=== PATIENT | female | born 2000 | race Caucasian/White ===

== ENCOUNTER 2021-02-16 11:35 | Observation (INO) | payer OTHER ==
[2021-02-16] MEDS ORDERED: TORAdol 30 mg Injection ONE (11:44)
[2021-02-16] MEDS ORDERED: Zofran 4 MG/2 ML VIAL ONE ×2 (11:44→15:28)
[2021-02-16] MEDS ORDERED: Sodium Chloride 0.9% 1000 ML 1,000 ML ONE (11:44)
[2021-02-16] MEDS ORDERED: TORAdol 30 mg Injection IV ONE (11:51)
[2021-02-16] MEDS ORDERED: Sodium Chloride 0.9% 1000 ML 1,000 ML IV STA (11:51)
[2021-02-16] MEDS ORDERED: Zofran 4 MG/2 ML VIAL IV ONE ×2 (11:59→15:23)
[2021-02-16 12:02] LABS: Absolute Neutrophil Ct (ANC) 4.67 (1.4-6.9); BASOPHIL % 0.5 % (0.0-0.4); Basophil (Absolute #) 0.05 (0-0.4); Eosinophil % 1.3 % (0.00-5.0); Eosinophil (Absolute #) 0.14 (0-0.5); Hematocrit 39.8 % (35-47); Hemoglobin 12.9 gm/dl (12.0-16.0); Lymphocyte (Absolute #) 5.45 (1.0-4.6); Lymphocytes % 49.8 % (24.0-44.0); Mean Cell Volume 94.8 fl (78-100); Mean Corpuscular Hemoglobin 30.7 pg (26-32); Mean Corpuscular Hgb Concent. 32.4 g/dl (32-36); Mean Platelet Volume 10.9 fl (7.5-11.0); Monocyte (Absolute #) 0.64 (0.0-1.3); Monocytes % 5.8 % (0.0-12.0); Neutrophil % 42.6 % (36.0-66.0); Platelet Count 272 K/mm3 (150-450); Red Cell Distribution Width 12.9 % (11.5-14.0)
[2021-02-16] MEDS ORDERED: MORPHINE SULFATE 4 MG INJ IV ONE (12:21)
[2021-02-16] MEDS ORDERED: BENADRYL 50 MG/ML IV ONE (12:26)
[2021-02-16] MEDS ORDERED: BENADRYL 50 MG/ML ONE (12:27)
[2021-02-16] MEDS ORDERED: MORPHINE SULFATE 4 MG INJ ONE (12:27)
[2021-02-16 12:33] LABS: ALBUMIN 4.6 g/dL (3.5-5.0); ALKALINE PHOSPHATASE 45 U/L (38-126); ANION GAP 17.1 MEQ/L (5-15); BLOOD UREA NITROGEN 10 mg/dL (7-17); CHLORIDE 107 mmol/L (98-107); Calcium 9.8 mg/dL (8.4-10.2); Carbon Dioxide 20 mmol/L (22-30); Creatinine 1 0.81 mg/dL (0.52-1.04); EST GLOMERULAR FILTRATION RATE > 60.0 ML/MIN; Glucose 116 mg/dL (74-106); Potassium 3.8 mmol/L (3.5-5.1); SGOT/AST 19 U/L (14-36); SGPT/ALT 10 U/L (0-35); SODIUM 141 mmol/L (137-145); Total Protein 7.7 g/dL (6.3-8.2)
[2021-02-16 12:53] LABS: Slide Review 1 YES
--- NOTE | 2021-02-16 13:14 | XRAY ---
Indication: Abdomen pain and vomiting. Kidney stone. Multiple contiguous images obtained through the abdomen and pelvis without contrast using renal stone protocol. Comparison: May 24, 2015. Lung bases remain clear. Heart is not enlarged. No renal calculus or evidence for obstructive uropathy in either system. Noncontrasted stomach and bowel loops appear nonobstructed. Normal air-filled appendix. Tiny cul-de-sac fluid presumed physiologic from rupture/leaking cyst. Remaining liver, gallbladder, pancreas, spleen, adrenal glands, kidneys, ureters, bladder, uterus, and aorta are unremarkable for noncontrast exam. Osseous structures intact. Impression: 1. Continued negative for renal calculus or evidence for obstructive uropathy. 2. New tiny physiologic cul-de-sac fluid. 3. Remaining CT abdomen/pelvis without contrast exam is negative.
[2021-02-16 14:33] LABS: Clue Cells None Seen
[2021-02-16 14:34] LABS: Bacteria Rare; Red Blood Cells Moderate; Trichomonas None Seen; White Blood Cells Few; Yeast Rare
[2021-02-16 14:35] LABS: Appearance SLIGHTLY CLOUDY (CLEAR); Bacteria RARE /HPF (NEGATIVE); Bilirubin NEGATIVE (NEGATIVE); Blood LARGE Ery/ul (0-5); Epithelial Cells RARE /HPF (FEW); Glucose NEGATIVE (NEGATIVE); Ketones SMALL (NEGATIVE); Leukocyte Esterase NEGATIVE (NEGATIVE); Mucus SLIGHT /HPF (NEGATIVE); Nitrite NEGATIVE (NEGATIVE); Protein,Urine Dip 30 (Negative); RBC 26-50 /HPF (0-2); Urobilinogen NEGATIVE mg/dL (0-1)
--- NOTE | 2021-02-16 15:18 | XRAY ---
Indication: Pain and vomiting. Torsion. Two-dimensional transabdominal and transvaginal pelvic sonogram performed. Comparison: None Uterus retroflexed measuring 5.7 x 2.8 x 3.6 cm. No focal solid/cystic uterine mass. Endometrial stripe measures 1.9 mm. No endometrial cavity mass or fluid collection. Right ovary measures 2.0 x 1.9 x 1.7 cm and the left measures 2.4 x 2.3 x 2.1 cm. Normal perfusion bilaterally. Tiny cul-de-sac fluid presumed physiologic from rupture/leaking cyst. Impression: Retroflexed uterus. Tiny cul-de-sac physiologic free fluid. Remaining pelvic sonogram is negative.
--- NOTE | 2021-02-16 15:21 | ERPHSYRPT ---
- History of Present Illness Time Seen by Provider: 02/16/21 11:45 Patient Subjective Stated Complaint: Abdominal pain Triage Nursing Assessment: Patient brought back to ED via w/c and transferred to bed with assist of 1. Patient A+O x3. Patient's skin flushed, cool and dry. Patient complains of abdominal pain that goes to yunior flank 10/10 constant sharp pain. Patient crying in pain. Abdomen soft and round with BS X 4. Patient states the pain started after she urinated prior to coming into ED. Patient complains of N/V. Physician History: Patient is a 20-year-old female presents to our emergency department with complaints of abdominal pain that radiates into her vagina. Pain started just prior to arrival. 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 Pain is constant and severe. Patient states she typically has pain associated with her menstrual periods she is currently on her menstrual period. Pain associated with nausea and vomiting. No trauma no fever. Symptoms are moderate in intensity. No specific worsening or improving factors. Patient voices no other complaints concerns at this time. Timing/Duration: today Severity: moderate Modifying Factors: Improves With: nothing Associated Symptoms: nausea, vomiting, abdominal pain, No shortness of breath, No heartburn, No diaphoresis, No cough, No chills, No chest pain, No fever, No headaches, No loss of appetite, No malaise, No rash Allergies/Adverse Reactions: No Known Drug Allergies Allergy (Verified 02/16/21 11:36) Hx Tetanus, Diphtheria Vaccination/Date Given: Yes Hx Influenza Vaccination/Date Given: Yes Hx Pneumococcal Vaccination/Date Given: No Immunizations Up to Date: Yes Travel Risk - International Travel Have you traveled outside of the country in past 3 weeks: No - Coronavirus Screening Are you exhibiting any of the following symptoms?: No Close contact with a COVID-19 positive Pt in past 14-21 Days: No - Vaccine Status Have you recieved a Covid-19 vaccination: No - Review of Systems Constitutional: No Symptoms, No Fever, No Chills Eyes: No Symptoms Ears, Nose, & Throat: No Symptoms Respiratory: No Symptoms, No Cough, No Dyspnea Cardiac: No Symptoms, No Chest Pain, No Edema, No Syncope Abdominal/Gastrointestinal: No Symptoms, No Abdominal Pain, No Nausea, No Vomiting, No Diarrhea Genitourinary Symptoms: No Symptoms, No Dysuria Musculoskeletal: No Symptoms, No Back Pain, No Neck Pain Skin: No Symptoms, No Rash Neurological: No Symptoms, No Dizziness, No Focal Weakness, No Sensory Changes Psychological: No Symptoms Endocrine: No Symptoms Hematologic/Lymphatic: No Symptoms Immunological/Allergic: No Symptoms All Other Systems: Reviewed and Negative - Past Medical History Pertinent Past Medical History: No Neurological History: Migraines ENT History: No Pertinent History, Other Cardiac History: No Pertinent History Respiratory History: No Pertinent History Endocrine Medical History: No Pertinent History Musculoskeletal History: No Pertinent History GI Medical History: No Pertinent History, GERD Psycho-Social History: No Pertinent History - Past Surgical History Past Surgical History: Yes Other Surgical History: CYST REMOVED - Social History Smoking Status: Never smoker Exposure to second hand smoke: Yes Drug Use: none Patient Lives Alone: No - Female History Hx Last Menstrual Period: currently Hx Now: No - Nursing Vital Signs Nursing Vital Signs: Initial Vital Signs Temperature 98.0 F 02/16/21 11:38 Pulse Rate 72 02/16/21 11:38 Respiratory Rate 18 02/16/21 11:38 Blood Pressure 123/77 02/16/21 11:38 O2 Sat by Pulse Oximetry 100 02/16/21 11:38 Pain Scale Pain Intensity 4 - Physical Exam General Appearance: no apparent distress, alert Eye Exam: PERRL/EOMI, eyes nml inspection Ears, Nose, Throat Exam: normal ENT inspection, TMs normal, pharynx normal, moist mucous membranes Neck Exam: normal inspection, non-tender, supple, full range of motion Respiratory Exam: normal breath sounds, lungs clear, No respiratory distress Cardiovascular Exam: regular rate/rhythm, normal heart sounds, normal peripheral pulses Gastrointestinal/Abdomen Exam: soft, normal bowel sounds, No tenderness, No mass Pelvic Exam: normal external exam, adnexal tenderness (Mild bilateral adnexal tenderness.), No cervical motion tenderness (Negative chandelier sign. There is vaginal bleeding however patient currently on her menstrual period) Back Exam: normal inspection, normal range of motion, No CVA tenderness, No vertebral tenderness Extremity Exam: normal inspection, normal range of motion, pelvis stable Neurologic Exam: alert, oriented x 3, cooperative, normal mood/affect, nml cerebellar function, nml station & gait, sensation nml, No motor deficits Skin Exam: normal color, warm, dry, No rash Lymphatic Exam: No adenopathy SpO2 Interpretation: normal SpO2: 98 O2 Delivery: Room Air - Course Nursing assessment & vital signs reviewed: Yes - CT Exams Abdomen/Pelvis CT Interpretation: Tele-radiologist Report (No ureterolithiasis. No acute intra-abdominal pathology observed. Small fluid in the cul-de-sac.) - Radiology Ultrasound Exam Pelvis Ultrasound: tele radiology report (Retroflexed uterus. Tiny cul-de-sac physiologic free fluid. Remaining pelvic sonogram is negative. Normal ovary perfusion bilaterally.) Ordered Tests: Active Orders 24 hr Category Date Time Status IV Insertion STAT Care 02/16/21 11:51 Active ABDOMEN AND PELVIS W/0 CONTRAS [CT] Stat Exams 02/16/21 11:52 Completed PELVIS TRANS VAGINAL [US] Stat Exams 02/16/21 14:17 Completed CBC W DIFF Stat Lab 02/16/21 12:01 Completed CMP Stat Lab 02/16/21 12:01 Completed CULTURE,URINE Stat Lab 02/16/21 14:17 Received HCG QUALITATIVE,SERUM Stat Lab 02/16/21 Completed UA W/RFX UR CULTURE Stat Lab 02/16/21 14:17 Completed Wet Prep Stat Lab 02/16/21 14:10 Completed Medication Summary Discontinued Medications Generic Name Dose Route Start Last Admin Trade Name Freq PRN Reason Stop Dose Admin Diphenhydramine HCl 25 mg 02/16/21 12:26 02/16/21 12:28 Benadryl 50 Mg/Ml IV 02/16/21 12:27 25 mg STAT ONE Administration Diphenhydramine HCl Confirm 02/16/21 12:27 Benadryl 50 Mg/Ml Administered 02/16/21 12:28 Dose 50 mg .ROUTE .STK-MED ONE Sodium Chloride Confirm 02/16/21 11:44 Sodium Chloride 0.9% 1000 Ml Administered 02/16/21 11:45 Dose 1,000 mls @ ud .ROUTE .STK-MED ONE Sodium Chloride 1,000 mls @ 999 mls/hr 02/16/21 11:51 02/16/21 13:03 Sodium Chloride 0.9% 1000 Ml IV 02/16/21 12:51 Infused .Q1H1M STA Infusion Ketorolac Tromethamine Confirm 02/16/21 11:44 Toradol 30 Mg Injection Administered 02/16/21 11:45 Dose 30 mg .ROUTE .STK-MED ONE Ketorolac Tromethamine 30 mg 02/16/21 11:51 02/16/21 11:56 Toradol 30 Mg Injection IV 02/16/21 11:52 30 mg STAT ONE Administration Morphine Sulfate 4 mg 02/16/21 12:21 02/16/21 12:28 Morphine Sulfate 4 Mg Inj IV 02/16/21 12:22 4 mg STAT ONE Administration Morphine Sulfate Confirm 02/16/21 12:27 Morphine Sulfate 4 Mg Inj Administered 02/16/21 12:28 Dose 4 mg .ROUTE .STK-MED ONE Ondansetron HCl Confirm 02/16/21 11:44 Zofran 4 Mg/2 Ml Vial Administered 02/16/21 11:45 Dose 4 mg .ROUTE .STK-MED ONE Ondansetron HCl 4 mg 02/16/21 11:59 02/16/21 12:00 Zofran 4 Mg/2 Ml Vial IV 02/16/21 12:00 4 mg STAT ONE Administration Ondansetron HCl 4 mg 02/16/21 15:23 02/16/21 15:29 Zofran 4 Mg/2 Ml Vial IV 02/16/21 15:24 4 mg STAT ONE Administration Ondansetron HCl Confirm 02/16/21 15:28 Zofran 4 Mg/2 Ml Vial Administered 02/16/21 15:29 Dose 4 mg .ROUTE .STK-MED ONE Lab/Rad Data: Laboratory Result Diagrams 02/16/21 12:01 02/16/21 12:01 Laboratory Results 02/16/21 02/16/21 02/16/21 Range/Units Unknown 15:36 14:17 WBC (4.0-10.5) K/mm3 RBC (4.1-5.4) M/mm3 Hgb (12.0-16.0) gm/dl Hct (35-47) % MCV (78-100) fl MCH (26-32) pg MCHC (32-36) g/dl RDW (11.5-14.0) % Plt Count (150-450) K/mm3 MPV (7.5-11.0) fl Gran % (36.0-66.0) % Eos # (Auto) (0-0.5) Absolute Lymphs (auto) (1.0-4.6) Absolute Monos (auto) (0.0-1.3) Lymphocytes % (24.0-44.0) % Monocytes % (0.0-12.0) % Eosinophils % (0.00-5.0) % Basophils % (0.0-0.4) % Absolute Granulocytes (1.4-6.9) Basophils # (0-0.4) Sodium (137-145) mmol/L Potassium (3.5-5.1) mmol/L Chloride (98-107) mmol/L Carbon Dioxide (22-30) mmol/L Anion Gap (5-15) MEQ/L BUN (7-17) mg/dL Creatinine (0.52-1.04) mg/dL Estimated GFR ML/MIN Glucose (74-106) mg/dL Calcium (8.4-10.2) mg/dL Total Bilirubin (0.2-1.3) mg/dL AST (14-36) U/L ALT (0-35) U/L Alkaline Phosphatase (38-126) U/L Serum Total Protein (6.3-8.2) g/dL Albumin (3.5-5.0) g/dL Serum , Qual NEGATIVE (Negative) Urine Color (YELLOW) Urine Appearance (CLEAR) Urine pH (5-6) Ur Specific [place] (1.005-1.025) Urine Protein (Negative) Urine Ketones (NEGATIVE) Urine Blood (0-5) Ramu/ul Urine Nitrite (NEGATIVE) Urine Bilirubin (NEGATIVE) Urine Urobilinogen (0-1) mg/dL Ur Leukocyte Esterase (NEGATIVE) Urine WBC (Auto) (0-5) /HPF Urine RBC (Auto) (0-2) /HPF U Epithel Cells (Auto) (FEW) /HPF Urine Bacteria (Auto) (NEGATIVE) /HPF Urine Mucus (Auto) (NEGATIVE) /HPF Urine Culture Reflexed (NO) Urine Glucose (NEGATIVE) mg/dL WBC (Wet Prep) RBC (Wet Prep) Epi Cells (Wet Prep) Bacteria (Wet Prep) Clue Cells (Wet Prep) Trichomonas (Wet Prep) Budding Yeast (Wet Prp) Chlamydia DNA Probe NOT DETECTED (NEGATIVE) Influenza Type A Ag NEGATIVE (NEGATIVE) Influenza Type B Ag NEGATIVE (NEGATIVE) N.gonorrhoeae DNA Probe NOT DETECTED (NEGATIVE) RSV (PCR) NEGATIVE (Negative) SARS-CoV-2 (PCR) NEGATIVE (NEGATIVE) Slides for Path Review 02/16/21 02/16/21 02/16/21 Range/Units 14:17 14:10 12:01 WBC (4.0-10.5) K/mm3 RBC (4.1-5.4) M/mm3 Hgb (12.0-16.0) gm/dl Hct (35-47) % MCV (78-100) fl MCH (26-32) pg MCHC (32-36) g/dl RDW (11.5-14.0) % Plt Count (150-450) K/mm3 MPV (7.5-11.0) fl Gran % (36.0-66.0) % Eos # (Auto) (0-0.5) Absolute Lymphs (auto) (1.0-4.6) Absolute Monos (auto) (0.0-1.3) Lymphocytes % (24.0-44.0) % Monocytes % (0.0-12.0) % Eosinophils % (0.00-5.0) % Basophils % (0.0-0.4) % Absolute Granulocytes (1.4-6.9) Basophils # (0-0.4) Sodium 141 (137-145) mmol/L Potassium 3.8 (3.5-5.1) mmol/L Chloride 107 (98-107) mmol/L Carbon Dioxide 20 L (22-30) mmol/L Anion Gap 17.1 H (5-15) MEQ/L BUN 10 (7-17) mg/dL Creatinine 0.81 (0.52-1.04) mg/dL Estimated GFR > 60.0 ML/MIN Glucose 116 H (74-106) mg/dL Calcium 9.8 (8.4-10.2) mg/dL Total Bilirubin 0.70 (0.2-1.3) mg/dL AST 19 (14-36) U/L ALT 10 (0-35) U/L Alkaline Phosphatase 45 (38-126) U/L Serum Total Protein 7.7 (6.3-8.2) g/dL Albumin 4.6 (3.5-5.0) g/dL Serum , Qual (Negative) Urine Color YELLOW (YELLOW) Urine Appearance SLIGHTLY CLOUDY (CLEAR) Urine pH 7.0 (5-6) Ur Specific [place] 1.020 (1.005-1.025) Urine Protein 30 (Negative) Urine Ketones SMALL (NEGATIVE) Urine Blood LARGE (0-5) Ramu/ul Urine Nitrite NEGATIVE (NEGATIVE) Urine Bilirubin NEGATIVE (NEGATIVE) Urine Urobilinogen NEGATIVE (0-1) mg/dL Ur Leukocyte Esterase NEGATIVE (NEGATIVE) Urine WBC (Auto) 6-10 (0-5) /HPF Urine RBC (Auto) 26-50 (0-2) /HPF U Epithel Cells (Auto) RARE (FEW) /HPF Urine Bacteria (Auto) RARE (NEGATIVE) /HPF Urine Mucus (Auto) SLIGHT (NEGATIVE) /HPF Urine Culture Reflexed YES (NO) Urine Glucose NEGATIVE (NEGATIVE) mg/dL WBC (Wet Prep) Few RBC (Wet Prep) Moderate Epi Cells (Wet Prep) Few Bacteria (Wet Prep) Rare Clue Cells (Wet Prep) None Seen Trichomonas (Wet Prep) None Seen Budding Yeast (Wet Prp) Rare Chlamydia DNA Probe (NEGATIVE) Influenza Type A Ag (NEGATIVE) Influenza Type B Ag (NEGATIVE) N.gonorrhoeae DNA Probe (NEGATIVE) RSV (PCR) (Negative) SARS-CoV-2 (PCR) (NEGATIVE) Slides for Path Review 02/16/21 Range/Units 12:01 WBC 11.0 H (4.0-10.5) K/mm3 RBC 4.20 (4.1-5.4) M/mm3 Hgb 12.9 (12.0-16.0) gm/dl Hct 39.8 (35-47) % MCV 94.8 (78-100) fl MCH 30.7 (26-32) pg MCHC 32.4 (32-36) g/dl RDW 12.9 (11.5-14.0) % Plt Count 272 (150-450) K/mm3 MPV 10.9 (7.5-11.0) fl Gran % 42.6 (36.0-66.0) % Eos # (Auto) 0.14 (0-0.5) Absolute Lymphs (auto) 5.45 H (1.0-4.6) Absolute Monos (auto) 0.64 (0.0-1.3) Lymphocytes % 49.8 H (24.0-44.0) % Monocytes % 5.8 (0.0-12.0) % Eosinophils % 1.3 (0.00-5.0) % Basophils % 0.5 (0.0-0.4) % Absolute Granulocytes 4.67 (1.4-6.9) Basophils # 0.05 (0-0.4) Sodium (137-145) mmol/L Potassium (3.5-5.1) mmol/L Chloride (98-107) mmol/L Carbon Dioxide (22-30) mmol/L Anion Gap (5-15) MEQ/L BUN (7-17) mg/dL Creatinine (0.52-1.04) mg/dL Estimated GFR ML/MIN Glucose (74-106) mg/dL Calcium (8.4-10.2) mg/dL Total Bilirubin (0.2-1.3) mg/dL AST (14-36) U/L ALT (0-35) U/L Alkaline Phosphatase (38-126) U/L Serum Total Protein (6.3-8.2) g/dL Albumin (3.5-5.0) g/dL Serum , Qual (Negative) Urine Color (YELLOW) Urine Appearance (CLEAR) Urine pH (5-6) Ur Specific [place] (1.005-1.025) Urine Protein (Negative) Urine Ketones (NEGATIVE) Urine Blood (0-5) Ramu/ul Urine Nitrite (NEGATIVE) Urine Bilirubin (NEGATIVE) Urine Urobilinogen (0-1) mg/dL Ur Leukocyte Esterase (NEGATIVE) Urine WBC (Auto) (0-5) /HPF Urine RBC (Auto) (0-2) /HPF U Epithel Cells (Auto) (FEW) /HPF Urine Bacteria (Auto) (NEGATIVE) /HPF Urine Mucus (Auto) (NEGATIVE) /HPF Urine Culture Reflexed (NO) Urine Glucose (NEGATIVE) mg/dL WBC (Wet Prep) RBC (Wet Prep) Epi Cells (Wet Prep) Bacteria (Wet Prep) Clue Cells (Wet Prep) Trichomonas (Wet Prep) Budding Yeast (Wet Prp) Chlamydia DNA Probe (NEGATIVE) Influenza Type A Ag (NEGATIVE) Influenza Type B Ag (NEGATIVE) N.gonorrhoeae DNA Probe (NEGATIVE) RSV (PCR) (Negative) SARS-CoV-2 (PCR) (NEGATIVE) Slides for Path Review YES - Progress Progress: improved Progress Note: Patient reassessed. Pain transiently improved. CT scan negative for acute pathology. There is small amount of fluid in the cul-de-sac. Pelvic exam essentially negative. GC chlamydia/wet prep essentially negative. Ultrasound pelvis shows fluid in the cul-de-sac. Otherwise negative. Labs essentially within normal limits. However patient remains symptomatic. Patient continues to complain of nausea and vomiting. Patient unable to tolerate p.o. Patient is very nauseous. Patient's pain continues to be problematic. Endometriosis is on our differential. Case discussed with Dr. Rolon accepts admission to observation. Dr. Duke on consult. Dr. Chávez evaluated patient at bedside. Plan of care discussed with patient. Mother at bedside. They both agree to admission at [facility] for further evaluation and treatment. 02/16/21 17:14 Discussed with DrPilar: Humble Stevenson Will see patient in: hospital (observation) Counseled pt/family regarding: lab results, diagnosis, rad results - Departure Departure Disposition: Observation Clinical Impression: Nausea & vomiting, Intractable abdominal pain Condition: Stable Critical Care Time: No Referrals: CR JACKSON, [employer]YS[employer]AC[employer] MEMBER [Primary Care Provider] -
[2021-02-16 15:50] LABS: CHLAMYDIA DNA NOT DETECTED (NEGATIVE); GC DNA Probe NOT DETECTED (NEGATIVE)
[2021-02-16 16:25] LABS: INFLUENZA A NEGATIVE (NEGATIVE); INFLUENZA B NEGATIVE (NEGATIVE); RESPIRATORY SYNCTIAL VIRUS NEGATIVE (Negative)
[2021-02-16] MEDS ORDERED: MORPHINE SULFATE 4 MG INJ IV PRN (17:23)
[2021-02-16] MEDS ORDERED: Zofran 4 MG/2 ML VIAL IV PRN ×2 (17:23→19:24)
[2021-02-16] MEDS: Sodium Chloride 0.9% 1000 ML 1,000 ML IV SCH (17:33)
[2021-02-16] MEDS ORDERED: Compazine 10 MG/2 ML IV PRN (19:33)
[2021-02-17] MEDS: Sodium Chloride 0.9% 1000 ML 1,000 ML IV SCH (03:11)
[2021-02-17 04:50] LABS: BASOPHIL % 0.2 % (0.0-0.4); Basophil (Absolute #) 0.02 (0-0.4); Eosinophil % 0.1 % (0.00-5.0); Eosinophil (Absolute #) 0.01 (0-0.5); Hematocrit 34.4 % (35-47); Hemoglobin 11.2 gm/dl (12.0-16.0); Lymphocyte (Absolute #) 3.66 (1.0-4.6); Lymphocytes % 30.3 % (24.0-44.0); Mean Cell Volume 95.3 fl (78-100); Mean Corpuscular Hgb Concent. 32.6 g/dl (32-36); Mean Platelet Volume 11.1 fl (7.5-11.0); Monocytes % 8.3 % (0.0-12.0); Neutrophil % 61.1 % (36.0-66.0); Platelet Count 198 K/mm3 (150-450); Red Blood Count 3.61 M/mm3 (4.1-5.4); Red Cell Distribution Width 12.8 % (11.5-14.0); White Blood Count 12.1 K/mm3 (4.0-10.5)
[2021-02-17 05:17] LABS: ALBUMIN 3.6 g/dL (3.5-5.0); ALKALINE PHOSPHATASE 32 U/L (38-126); ANION GAP 10.6 MEQ/L (5-15); BLOOD UREA NITROGEN 10 mg/dL (7-17); CHLORIDE 109 mmol/L (98-107); Calcium 8.6 mg/dL (8.4-10.2); Carbon Dioxide 22 mmol/L (22-30); Creatinine 1 0.66 mg/dL (0.52-1.04); EST GLOMERULAR FILTRATION RATE > 60.0 ML/MIN; Glucose 87 mg/dL (74-106); Potassium 3.7 mmol/L (3.5-5.1); SGOT/AST 17 U/L (14-36); SGPT/ALT 11 U/L (0-35); SODIUM 138 mmol/L (137-145); Total Protein 6.3 g/dL (6.3-8.2)
--- NOTE | 2021-02-17 08:56 | PCM.SSS ---
History of Present Illness - Chief Complaint Chief Complaint: intractable nausea and vomiting, dysmenorhea Date: 02/17/21 History of Present Illness: is a 20 year old female. Pt. presented to ER with acute onset of abdominal pain / pelvic pain with n/v. Pt. and mother both note they have a family history and personal history of very painful menses. Pt. initially evaluated and felt possibly could go home only to have more n/v and severe menstrual cramps. Pt. received full evaluation in the ER and no other etiology was found. - Review of Systems Constitutional: No Fever, No Chills Eyes: No Symptoms Ears, Nose, & Throat: No Symptoms Respiratory: No Cough, No Short Of Breath Cardiac: No Chest Pain, No Edema, No Syncope Abdominal/Gastrointestinal: Nausea, Vomiting, No Abdominal Pain, No Diarrhea Genitourinary Symptoms: Menorrhagia Musculoskeletal: No Back Pain, No Neck Pain Skin: No Rash Neurological: No Dizziness, No Focal Weakness, No Sensory Changes Psychological: No Symptoms Endocrine: No Symptoms Hematologic/Lymphatic: No Symptoms Immunological/Allergic: No Symptoms Medications & Allergies Home Medications: Home Medication List Naproxen 500 mg [Naprosyn 500 MG] 1 tab PO BIDPRN PRN #20 tablet 02/17/21 [Rx] Promethazine HCl [Phenergan] 1 supp.rect RC Q6-8HPRN PRN #10 supp.rect 02/17/21 [Rx] Allergies/Adverse Reactions: Allergies Allergy/AdvReac Type Severity Reaction Status Date / Time No Known Drug Allergies Allergy Verified 02/16/21 11:36 - Past Medical History Past Medical History: Yes Neurological History: Migraines ENT History: No Pertinent History Cardiac History: No Pertinent History Respiratory History: No Pertinent History Endocrine Medical History: No Pertinent History Musculoskelatal History: No Pertinent History GI Medical History: No Pertinent History History: No Pertinent History Pyscho-Social History: No Pertinent History Reproductive Disorders: No Pertinent History Comment: nystigmus - Female History Hx Last Menstrual Period: currently Are you now?: No - Past Surgical History Past Surgical History: Yes Other Surgical History: CYST REMOVED - Social History Smoking Status: Current every day smoker How long have you smoked: 1 year vap Exposure to second hand smoke: Yes Alcohol: None Drug Use: none - Physical Exam Vital Signs: Vital Signs - 24 hr Temp Pulse Resp BP Pulse Ox 02/17/21 04:00 97.9 F 56 L 16 96/46 98 02/16/21 23:53 98.3 F 54 L 16 93/50 98 02/16/21 17:49 97.5 F 76 20 118/55 98 02/16/21 17:33 97.5 F 76 20 118/55 98 02/16/21 17:32 97.5 F 76 20 118/55 98 02/16/21 17:17 98 02/16/21 17:01 74 18 121/74 97 02/16/21 15:45 78 18 117/68 98 02/16/21 13:10 88 20 112/74 98 02/16/21 12:35 80 16 117/74 98 02/16/21 11:38 98.0 F 72 18 123/77 100 General Appearance: no apparent distress, alert Neurologic Exam: alert, oriented x 3, cooperative, normal mood/affect, nml cerebellar function, nml station & gait, sensation nml, No motor deficits Eye Exam: PERRL/EOMI, eyes nml inspection Ears, Nose, Throat Exam: normal ENT inspection, TMs normal, pharynx normal, moist mucous membranes Neck Exam: normal inspection, non-tender, supple, full range of motion Respiratory Exam: normal breath sounds, lungs clear, No respiratory distress Cardiovascular Exam: regular rate/rhythm, normal heart sounds, normal peripheral pulses Gastrointestinal/Abdomen Exam: soft, normal bowel sounds, No tenderness, No mass Back Exam: normal inspection, normal range of motion, No CVA tenderness, No vertebral tenderness Extremity Exam: normal inspection, normal range of motion, pelvis stable Skin Exam: normal color, warm, dry, No rash Lymphatic Exam: No adenopathy Results - Labs Lab/Micro Results: Lab Results-Last 24 Hours 02/16/21 02/16/21 02/16/21 Range/Units 12:01 12:01 14:10 WBC 11.0 H (4.0-10.5) K/mm3 RBC 4.20 (4.1-5.4) M/mm3 Hgb 12.9 (12.0-16.0) gm/dl Hct 39.8 (35-47) % MCV 94.8 (78-100) fl MCH 30.7 (26-32) pg MCHC 32.4 (32-36) g/dl RDW 12.9 (11.5-14.0) % Plt Count 272 (150-450) K/mm3 MPV 10.9 (7.5-11.0) fl Gran % 42.6 (36.0-66.0) % Eos # (Auto) 0.14 (0-0.5) Absolute Lymphs (auto) 5.45 H (1.0-4.6) Absolute Monos (auto) 0.64 (0.0-1.3) Lymphocytes % 49.8 H (24.0-44.0) % Monocytes % 5.8 (0.0-12.0) % Eosinophils % 1.3 (0.00-5.0) % Basophils % 0.5 (0.0-0.4) % Absolute Granulocytes 4.67 (1.4-6.9) Basophils # 0.05 (0-0.4) Sodium 141 (137-145) mmol/L Potassium 3.8 (3.5-5.1) mmol/L Chloride 107 (98-107) mmol/L Carbon Dioxide 20 L (22-30) mmol/L Anion Gap 17.1 H (5-15) MEQ/L BUN 10 (7-17) mg/dL Creatinine 0.81 (0.52-1.04) mg/dL Estimated GFR > 60.0 ML/MIN Glucose 116 H (74-106) mg/dL Calcium 9.8 (8.4-10.2) mg/dL Total Bilirubin 0.70 (0.2-1.3) mg/dL AST 19 (14-36) U/L ALT 10 (0-35) U/L Alkaline Phosphatase 45 (38-126) U/L Serum Total Protein 7.7 (6.3-8.2) g/dL Albumin 4.6 (3.5-5.0) g/dL Serum , Qual (Negative) Urine Color (YELLOW) Urine Appearance (CLEAR) Urine pH (5-6) Ur Specific Rigby (1.005-1.025) Urine Protein (Negative) Urine Ketones (NEGATIVE) Urine Blood (0-5) Ramu/ul Urine Nitrite (NEGATIVE) Urine Bilirubin (NEGATIVE) Urine Urobilinogen (0-1) mg/dL Ur Leukocyte Esterase (NEGATIVE) Urine WBC (Auto) (0-5) /HPF Urine RBC (Auto) (0-2) /HPF U Epithel Cells (Auto) (FEW) /HPF Urine Bacteria (Auto) (NEGATIVE) /HPF Urine Mucus (Auto) (NEGATIVE) /HPF Urine Culture Reflexed (NO) Urine Glucose (NEGATIVE) mg/dL WBC (Wet Prep) Few RBC (Wet Prep) Moderate Epi Cells (Wet Prep) Few Bacteria (Wet Prep) Rare Clue Cells (Wet Prep) None Seen Trichomonas (Wet Prep) None Seen Budding Yeast (Wet Prp) Rare Chlamydia DNA Probe (NEGATIVE) Influenza Type A Ag (NEGATIVE) Influenza Type B Ag (NEGATIVE) N.gonorrhoeae DNA Probe (NEGATIVE) RSV (PCR) (Negative) SARS-CoV-2 (PCR) (NEGATIVE) Slides for Path Review YES 02/16/21 02/16/21 02/16/21 Range/Units 14:17 14:17 15:36 WBC (4.0-10.5) K/mm3 RBC (4.1-5.4) M/mm3 Hgb (12.0-16.0) gm/dl Hct (35-47) % MCV (78-100) fl MCH (26-32) pg MCHC (32-36) g/dl RDW (11.5-14.0) % Plt Count (150-450) K/mm3 MPV (7.5-11.0) fl Gran % (36.0-66.0) % Eos # (Auto) (0-0.5) Absolute Lymphs (auto) (1.0-4.6) Absolute Monos (auto) (0.0-1.3) Lymphocytes % (24.0-44.0) % Monocytes % (0.0-12.0) % Eosinophils % (0.00-5.0) % Basophils % (0.0-0.4) % Absolute Granulocytes (1.4-6.9) Basophils # (0-0.4) Sodium (137-145) mmol/L Potassium (3.5-5.1) mmol/L Chloride (98-107) mmol/L Carbon Dioxide (22-30) mmol/L Anion Gap (5-15) MEQ/L BUN (7-17) mg/dL Creatinine (0.52-1.04) mg/dL Estimated GFR ML/MIN Glucose (74-106) mg/dL Calcium (8.4-10.2) mg/dL Total Bilirubin (0.2-1.3) mg/dL AST (14-36) U/L ALT (0-35) U/L Alkaline Phosphatase (38-126) U/L Serum Total Protein (6.3-8.2) g/dL Albumin (3.5-5.0) g/dL Serum , Qual (Negative) Urine Color YELLOW (YELLOW) Urine Appearance SLIGHTLY CLOUDY (CLEAR) Urine pH 7.0 (5-6) Ur Specific Rigby 1.020 (1.005-1.025) Urine Protein 30 (Negative) Urine Ketones SMALL (NEGATIVE) Urine Blood LARGE (0-5) Ramu/ul Urine Nitrite NEGATIVE (NEGATIVE) Urine Bilirubin NEGATIVE (NEGATIVE) Urine Urobilinogen NEGATIVE (0-1) mg/dL Ur Leukocyte Esterase NEGATIVE (NEGATIVE) Urine WBC (Auto) 6-10 (0-5) /HPF Urine RBC (Auto) 26-50 (0-2) /HPF U Epithel Cells (Auto) RARE (FEW) /HPF Urine Bacteria (Auto) RARE (NEGATIVE) /HPF Urine Mucus (Auto) SLIGHT (NEGATIVE) /HPF Urine Culture Reflexed YES (NO) Urine Glucose NEGATIVE (NEGATIVE) mg/dL WBC (Wet Prep) RBC (Wet Prep) Epi Cells (Wet Prep) Bacteria (Wet Prep) Clue Cells (Wet Prep) Trichomonas (Wet Prep) Budding Yeast (Wet Prp) Chlamydia DNA Probe NOT DETECTED (NEGATIVE) Influenza Type A Ag NEGATIVE (NEGATIVE) Influenza Type B Ag NEGATIVE (NEGATIVE) N.gonorrhoeae DNA Probe NOT DETECTED (NEGATIVE) RSV (PCR) NEGATIVE (Negative) SARS-CoV-2 (PCR) NEGATIVE (NEGATIVE) Slides for Path Review 02/16/21 02/17/21 02/17/21 Range/Units Unknown 04:30 04:30 WBC 12.1 H (4.0-10.5) K/mm3 RBC 3.61 L (4.1-5.4) M/mm3 Hgb 11.2 L (12.0-16.0) gm/dl Hct 34.4 L (35-47) % MCV 95.3 (78-100) fl MCH 31.0 (26-32) pg MCHC 32.6 (32-36) g/dl RDW 12.8 (11.5-14.0) % Plt Count 198 (150-450) K/mm3 MPV 11.1 H (7.5-11.0) fl Gran % 61.1 (36.0-66.0) % Eos # (Auto) 0.01 (0-0.5) Absolute Lymphs (auto) 3.66 (1.0-4.6) Absolute Monos (auto) 1.00 (0.0-1.3) Lymphocytes % 30.3 (24.0-44.0) % Monocytes % 8.3 (0.0-12.0) % Eosinophils % 0.1 (0.00-5.0) % Basophils % 0.2 (0.0-0.4) % Absolute Granulocytes 7.40 H (1.4-6.9) Basophils # 0.02 (0-0.4) Sodium 138 (137-145) mmol/L Potassium 3.7 (3.5-5.1) mmol/L Chloride 109 H (98-107) mmol/L Carbon Dioxide 22 (22-30) mmol/L Anion Gap 10.6 (5-15) MEQ/L BUN 10 (7-17) mg/dL Creatinine 0.66 (0.52-1.04) mg/dL Estimated GFR > 60.0 ML/MIN Glucose 87 (74-106) mg/dL Calcium 8.6 (8.4-10.2) mg/dL Total Bilirubin 0.60 (0.2-1.3) mg/dL AST 17 (14-36) U/L ALT 11 (0-35) U/L Alkaline Phosphatase 32 L (38-126) U/L Serum Total Protein 6.3 (6.3-8.2) g/dL Albumin 3.6 (3.5-5.0) g/dL Serum , Qual NEGATIVE (Negative) Urine Color (YELLOW) Urine Appearance (CLEAR) Urine pH (5-6) Ur Specific Rigby (1.005-1.025) Urine Protein (Negative) Urine Ketones (NEGATIVE) Urine Blood (0-5) Ramu/ul Urine Nitrite (NEGATIVE) Urine Bilirubin (NEGATIVE) Urine Urobilinogen (0-1) mg/dL Ur Leukocyte Esterase (NEGATIVE) Urine WBC (Auto) (0-5) /HPF Urine RBC (Auto) (0-2) /HPF U Epithel Cells (Auto) (FEW) /HPF Urine Bacteria (Auto) (NEGATIVE) /HPF Urine Mucus (Auto) (NEGATIVE) /HPF Urine Culture Reflexed (NO) Urine Glucose (NEGATIVE) mg/dL WBC (Wet Prep) RBC (Wet Prep) Epi Cells (Wet Prep) Bacteria (Wet Prep) Clue Cells (Wet Prep) Trichomonas (Wet Prep) Budding Yeast (Wet Prp) Chlamydia DNA Probe (NEGATIVE) Influenza Type A Ag (NEGATIVE) Influenza Type B Ag (NEGATIVE) N.gonorrhoeae DNA Probe (NEGATIVE) RSV (PCR) (Negative) SARS-CoV-2 (PCR) (NEGATIVE) Slides for Path Review - Radiology Impressions Radiology Exams & Impressions: Radiology Procedures Category Date Time Status ABDOMEN AND PELVIS W/0 CONTRAS [CT] Stat Exams 02/16/21 11:52 Completed PELVIS TRANS VAGINAL [US] Stat Exams 02/16/21 14:17 Completed Assessment/Plan (1) Menorrhagia Current Visit: Yes Status: Acute Assessment & Plan: Pt. is on her new pack of control pills, she has been instructed to not take the placebo pills and go directly into new pack of pills, she should do this 3 packs in a row to decrease the frequency of her menses. Pt. has tried and did not tolerate depo-provera in the past. Code(s): N92.0 - EXCESSIVE AND FREQUENT MENSTRUATION WITH REGULAR CYCLE (2) Nausea & vomiting Current Visit: Yes Status: Acute Assessment & Plan: Zofran was initiated in the Er and was not effective, pt. changed to compazine which has been effective. Code(s): R11.2 - NAUSEA WITH VOMITING, UNSPECIFIED Hospital Summary - Hospital Course Hospital Course: Pt. admitted to hospital zofran changed to compazine which was effective in controlling the nausea and vomiting, BCP will be continued for 3-4 packs prior to taking placebo pills for decreased frequency of menses. This am nausea is controlled and pt. eating and ready for d/c to home. - Vitals & Intake/Output Vital Signs: Vital Signs Temperature 97.9 F 02/17/21 04:00 Pulse Rate 56 L 02/17/21 04:00 Respiratory Rate 16 02/17/21 04:00 Blood Pressure 96/46 02/17/21 04:00 O2 Sat by Pulse Oximetry 98 02/17/21 04:00 Intake & Output: Intake & Output 02/14/21 02/15/21 02/16/21 02/17/21 11:59 11:59 11:59 11:59 Intake Total 1468 Output Total 950 Balance 518 Weight 63.503 kg 67.5 kg - Lab Result Diagrams: 02/17/21 04:30 02/17/21 04:30 Lab Results-Last 24 Hrs: Lab Results-Last 24 Hours 02/16/21 02/16/21 02/16/21 Range/Units 12:01 12:01 14:10 WBC 11.0 H (4.0-10.5) K/mm3 RBC 4.20 (4.1-5.4) M/mm3 Hgb 12.9 (12.0-16.0) gm/dl Hct 39.8 (35-47) % MCV 94.8 (78-100) fl MCH 30.7 (26-32) pg MCHC 32.4 (32-36) g/dl RDW 12.9 (11.5-14.0) % Plt Count 272 (150-450) K/mm3 MPV 10.9 (7.5-11.0) fl Gran % 42.6 (36.0-66.0) % Eos # (Auto) 0.14 (0-0.5) Absolute Lymphs (auto) 5.45 H (1.0-4.6) Absolute Monos (auto) 0.64 (0.0-1.3) Lymphocytes % 49.8 H (24.0-44.0) % Monocytes % 5.8 (0.0-12.0) % Eosinophils % 1.3 (0.00-5.0) % Basophils % 0.5 (0.0-0.4) % Absolute Granulocytes 4.67 (1.4-6.9) Basophils # 0.05 (0-0.4) Sodium 141 (137-145) mmol/L Potassium 3.8 (3.5-5.1) mmol/L Chloride 107 (98-107) mmol/L Carbon Dioxide 20 L (22-30) mmol/L Anion Gap 17.1 H (5-15) MEQ/L BUN 10 (7-17) mg/dL Creatinine 0.81 (0.52-1.04) mg/dL Estimated GFR > 60.0 ML/MIN Glucose 116 H (74-106) mg/dL Calcium 9.8 (8.4-10.2) mg/dL Total Bilirubin 0.70 (0.2-1.3) mg/dL AST 19 (14-36) U/L ALT 10 (0-35) U/L Alkaline Phosphatase 45 (38-126) U/L Serum Total Protein 7.7 (6.3-8.2) g/dL Albumin 4.6 (3.5-5.0) g/dL Serum , Qual (Negative) Urine Color (YELLOW) Urine Appearance (CLEAR) Urine pH (5-6) Ur Specific Rigby (1.005-1.025) Urine Protein (Negative) Urine Ketones (NEGATIVE) Urine Blood (0-5) Ramu/ul Urine Nitrite (NEGATIVE) Urine Bilirubin (NEGATIVE) Urine Urobilinogen (0-1) mg/dL Ur Leukocyte Esterase (NEGATIVE) Urine WBC (Auto) (0-5) /HPF Urine RBC (Auto) (0-2) /HPF U Epithel Cells (Auto) (FEW) /HPF Urine Bacteria (Auto) (NEGATIVE) /HPF Urine Mucus (Auto) (NEGATIVE) /HPF Urine Culture Reflexed (NO) Urine Glucose (NEGATIVE) mg/dL WBC (Wet Prep) Few RBC (Wet Prep) Moderate Epi Cells (Wet Prep) Few Bacteria (Wet Prep) Rare Clue Cells (Wet Prep) None Seen Trichomonas (Wet Prep) None Seen Budding Yeast (Wet Prp) Rare Chlamydia DNA Probe (NEGATIVE) Influenza Type A Ag (NEGATIVE) Influenza Type B Ag (NEGATIVE) N.gonorrhoeae DNA Probe (NEGATIVE) RSV (PCR) (Negative) SARS-CoV-2 (PCR) (NEGATIVE) Slides for Path Review YES 02/16/21 02/16/21 02/16/21 Range/Units 14:17 14:17 15:36 WBC (4.0-10.5) K/mm3 RBC (4.1-5.4) M/mm3 Hgb (12.0-16.0) gm/dl Hct (35-47) % MCV (78-100) fl MCH (26-32) pg MCHC (32-36) g/dl RDW (11.5-14.0) % Plt Count (150-450) K/mm3 MPV (7.5-11.0) fl Gran % (36.0-66.0) % Eos # (Auto) (0-0.5) Absolute Lymphs (auto) (1.0-4.6) Absolute Monos (auto) (0.0-1.3) Lymphocytes % (24.0-44.0) % Monocytes % (0.0-12.0) % Eosinophils % (0.00-5.0) % Basophils % (0.0-0.4) % Absolute Granulocytes (1.4-6.9) Basophils # (0-0.4) Sodium (137-145) mmol/L Potassium (3.5-5.1) mmol/L Chloride (98-107) mmol/L Carbon Dioxide (22-30) mmol/L Anion Gap (5-15) MEQ/L BUN (7-17) mg/dL Creatinine (0.52-1.04) mg/dL Estimated GFR ML/MIN Glucose (74-106) mg/dL Calcium (8.4-10.2) mg/dL Total Bilirubin (0.2-1.3) mg/dL AST (14-36) U/L ALT (0-35) U/L Alkaline Phosphatase (38-126) U/L Serum Total Protein (6.3-8.2) g/dL Albumin (3.5-5.0) g/dL Serum , Qual (Negative) Urine Color YELLOW (YELLOW) Urine Appearance SLIGHTLY CLOUDY (CLEAR) Urine pH 7.0 (5-6) Ur Specific Rigby 1.020 (1.005-1.025) Urine Protein 30 (Negative) Urine Ketones SMALL (NEGATIVE) Urine Blood LARGE (0-5) Ramu/ul Urine Nitrite NEGATIVE (NEGATIVE) Urine Bilirubin NEGATIVE (NEGATIVE) Urine Urobilinogen NEGATIVE (0-1) mg/dL Ur Leukocyte Esterase NEGATIVE (NEGATIVE) Urine WBC (Auto) 6-10 (0-5) /HPF Urine RBC (Auto) 26-50 (0-2) /HPF U Epithel Cells (Auto) RARE (FEW) /HPF Urine Bacteria (Auto) RARE (NEGATIVE) /HPF Urine Mucus (Auto) SLIGHT (NEGATIVE) /HPF Urine Culture Reflexed YES (NO) Urine Glucose NEGATIVE (NEGATIVE) mg/dL WBC (Wet Prep) RBC (Wet Prep) Epi Cells (Wet Prep) Bacteria (Wet Prep) Clue Cells (Wet Prep) Trichomonas (Wet Prep) Budding Yeast (Wet Prp) Chlamydia DNA Probe NOT DETECTED (NEGATIVE) Influenza Type A Ag NEGATIVE (NEGATIVE) Influenza Type B Ag NEGATIVE (NEGATIVE) N.gonorrhoeae DNA Probe NOT DETECTED (NEGATIVE) RSV (PCR) NEGATIVE (Negative) SARS-CoV-2 (PCR) NEGATIVE (NEGATIVE) Slides for Path Review 02/16/21 02/17/21 02/17/21 Range/Units Unknown 04:30 04:30 WBC 12.1 H (4.0-10.5) K/mm3 RBC 3.61 L (4.1-5.4) M/mm3 Hgb 11.2 L (12.0-16.0) gm/dl Hct 34.4 L (35-47) % MCV 95.3 (78-100) fl MCH 31.0 (26-32) pg MCHC 32.6 (32-36) g/dl RDW 12.8 (11.5-14.0) % Plt Count 198 (150-450) K/mm3 MPV 11.1 H (7.5-11.0) fl Gran % 61.1 (36.0-66.0) % Eos # (Auto) 0.01 (0-0.5) Absolute Lymphs (auto) 3.66 (1.0-4.6) Absolute Monos (auto) 1.00 (0.0-1.3) Lymphocytes % 30.3 (24.0-44.0) % Monocytes % 8.3 (0.0-12.0) % Eosinophils % 0.1 (0.00-5.0) % Basophils % 0.2 (0.0-0.4) % Absolute Granulocytes 7.40 H (1.4-6.9) Basophils # 0.02 (0-0.4) Sodium 138 (137-145) mmol/L Potassium 3.7 (3.5-5.1) mmol/L Chloride 109 H (98-107) mmol/L Carbon Dioxide 22 (22-30) mmol/L Anion Gap 10.6 (5-15) MEQ/L BUN 10 (7-17) mg/dL Creatinine 0.66 (0.52-1.04) mg/dL Estimated GFR > 60.0 ML/MIN Glucose 87 (74-106) mg/dL Calcium 8.6 (8.4-10.2) mg/dL Total Bilirubin 0.60 (0.2-1.3) mg/dL AST 17 (14-36) U/L ALT 11 (0-35) U/L Alkaline Phosphatase 32 L (38-126) U/L Serum Total Protein 6.3 (6.3-8.2) g/dL Albumin 3.6 (3.5-5.0) g/dL Serum , Qual NEGATIVE (Negative) Urine Color (YELLOW) Urine Appearance (CLEAR) Urine pH (5-6) Ur Specific Rigby (1.005-1.025) Urine Protein (Negative) Urine Ketones (NEGATIVE) Urine Blood (0-5) Ramu/ul Urine Nitrite (NEGATIVE) Urine Bilirubin (NEGATIVE) Urine Urobilinogen (0-1) mg/dL Ur Leukocyte Esterase (NEGATIVE) Urine WBC (Auto) (0-5) /HPF Urine RBC (Auto) (0-2) /HPF U Epithel Cells (Auto) (FEW) /HPF Urine Bacteria (Auto) (NEGATIVE) /HPF Urine Mucus (Auto) (NEGATIVE) /HPF Urine Culture Reflexed (NO) Urine Glucose (NEGATIVE) mg/dL WBC (Wet Prep) RBC (Wet Prep) Epi Cells (Wet Prep) Bacteria (Wet Prep) Clue Cells (Wet Prep) Trichomonas (Wet Prep) Budding Yeast (Wet Prp) Chlamydia DNA Probe (NEGATIVE) Influenza Type A Ag (NEGATIVE) Influenza Type B Ag (NEGATIVE) N.gonorrhoeae DNA Probe (NEGATIVE) RSV (PCR) (Negative) SARS-CoV-2 (PCR) (NEGATIVE) Slides for Path Review - Radiology Exams Ordered Rad Exams-Entire Visit: Radiology Procedures Category Date Time Status ABDOMEN AND PELVIS W/0 CONTRAS [CT] Stat Exams 02/16/21 11:52 Completed PELVIS TRANS VAGINAL [US] Stat Exams 02/16/21 14:17 Completed - Discharge Discharge Date: 02/17/21 Disposition: Home, Self-Care Condition: Stable Prescriptions: New Naproxen 500 mg [Naprosyn 500 MG] 1 tab PO BIDPRN PRN #20 tablet PRN Reason: Pain Promethazine HCl [Phenergan] 1 supp.rect RC Q6-8HPRN PRN #10 supp.rect PRN Reason: Pain Additional Instructions: Continue control pill, skipping the placebo/sugar pills at the end of each pack for 3 packs to decrease frequency of menstrual periods Follow up with: CR JACKSON NP [Primary Care Provider] -
[2021-02-17 09:05] VITALS: BP 98/54; PULSE 68; O2SAT 97
== END 2021-02-17 10:05 | disposition home or self-care (01) ==
LOC: ED 11:35 → MED SURG 17:16
PROVIDERS: ADMIT Family Medicine; ATTEND Family Medicine
DX: N92.0 Excessive and frequent menstruation with regular cycle (principal); R11.2 Nausea with vomiting, unspecified; N94.6 Dysmenorrhea, unspecified; N80.9 Endometriosis, unspecified; Z79.899 Other long term (current) drug therapy; Z20.828 Contact with and (suspected) exposure to other viral communicable diseases; R10.9 Unspecified abdominal pain; R10.2 Pelvic and perineal pain
CPT/HCPCS: 0241U; 36000; 36415; 74176; 76830; 80053; 81001; 81025; 85025; 87086; 87210; 87491; 87591; 96360; 96374; 96375; 96376; 99285; G0378; J1200; J1885; J2270; J2405

== ENCOUNTER 2022-03-22 17:36 | Emergency (ER) | payer OTHER ==
[2022-03-22] MEDS ORDERED: XYLOCAINE 1% HCL 20 ML MDV IJ ONE (17:37)
--- NOTE | 2022-03-22 17:44 | ERPHSYRPT ---
- History of Present Illness Time Seen by Provider: 03/22/22 17:44 Source: patient Exam Limitations: no limitations Physician History: This is a 21-year-old white female patient of Dr. Cox who woke up this morning and noticed left lateral lower leg insect bite. She put a pit[place]'s point line around it and throughout the day noticed that the redness and swelling was expanding slowly. She is here for antibiotics. Timing/Duration: today Quality: itchy, painful Severity: mild Possible Causes: insect bite Allergies/Adverse Reactions: No Known Drug Allergies Allergy (Verified 03/22/22 17:45) Home Medications: No Reportable Medications [No Reported Medications] 03/22/22 [History] Hx Tetanus, Diphtheria Vaccination/Date Given: Yes Hx Influenza Vaccination/Date Given: Yes Hx Pneumococcal Vaccination/Date Given: No Travel Risk - International Travel Have you traveled outside of the country in past 3 weeks: No - Coronavirus Screening Are you exhibiting any of the following symptoms?: No Close contact with a COVID-19 positive Pt in past 14-21 Days: No - Vaccine Status Have you recieved a Covid-19 vaccination: No - Review of Systems Constitutional: No Symptoms Eyes: No Symptoms Ears, Nose, & Throat: No Symptoms Respiratory: No Symptoms Cardiac: No Symptoms Abdominal/Gastrointestinal: No Symptoms Genitourinary Symptoms: No Symptoms Musculoskeletal: No Symptoms Skin: Cellulitis, Induration (Left lower leg) Neurological: No Symptoms Psychological: No Symptoms Endocrine: No Symptoms Hematologic/Lymphatic: No Symptoms Immunological/Allergic: No Symptoms All Other Systems: Reviewed and Negative - Past Medical History Pertinent Past Medical History: Yes Neurological History: Migraines ENT History: No Pertinent History Cardiac History: No Pertinent History Respiratory History: No Pertinent History Endocrine Medical History: No Pertinent History Musculoskeletal History: No Pertinent History GI Medical History: No Pertinent History History: No Pertinent History Psycho-Social History: No Pertinent History Female Reproductive Disorders: No Pertinent History Other Medical History: nystigmus - Past Surgical History Past Surgical History: Yes Other Surgical History: CYST REMOVED - Social History Smoking Status: Current every day smoker How long have you smoked: 1 year vap Exposure to second hand smoke: Yes Drug Use: none Patient Lives Alone: No - Nursing Vital Signs Nursing Vital Signs: Initial Vital Signs Temperature 98 F 03/22/22 17:46 Pulse Rate 90 03/22/22 17:46 Respiratory Rate 16 03/22/22 17:46 Blood Pressure 143/81 03/22/22 17:46 O2 Sat by Pulse Oximetry 98 03/22/22 17:46 Pain Scale Pain Intensity 8 - Physical Exam General Appearance: no apparent distress, alert, anxiety Eye Exam: PERRL/EOMI, eyes nml inspection Ears, Nose, Throat Exam: normal ENT inspection, moist mucous membranes Neck Exam: normal inspection, non-tender, supple, full range of motion Respiratory Exam: lungs clear, airway intact, No chest tenderness, No respiratory distress Gastrointestinal/Abdomen Exam: No tenderness Pelvic Exam: not done Rectal Exam: not done Back Exam: normal inspection, normal range of motion, No CVA tenderness, No vertebral tenderness Extremity Exam: normal range of motion, pelvis stable, swelling, tenderness, other (Localized cellulitis, redness and induration measuring approximately 1- 1/2 cm in width by 2-1/2 cm in its longest dimension. Shape is oval) Neurologic Exam: alert, oriented x 3, cooperative, car changer II-XII nml as tested, normal mood/affect, nml cerebellar function, nml station & gait, sensation nml Skin Exam: other (See above left lower leg lateral aspect) Lymphatic Exam: No adenopathy SpO2 Interpretation: normal O2 Delivery: Room Air - Course Nursing assessment & vital signs reviewed: Yes - Departure Departure Disposition: Home Clinical Impression: Insect bite of left leg Condition: Stable Critical Care Time: No Referrals: NAOMI COX DO [Primary Care Provider] - Follow up/PCP as directed Additional Instructions: Keep area clean daily with soap and water. Do not apply any type of ointment or cream to the site. Take your antibiotics as prescribed. Use Tylenol and ibuprofen for pain control. May use a heating pad to the area but not directly onto the skin daily. Follow-up with your primary care physician for persistent symptoms.
[2022-03-22] MEDS ORDERED: Rocephin 1000 MG INJ IM ONE (17:56)
[2022-03-22 17:57] VITALS: O2SAT 98
[2022-03-22] MEDS ORDERED: Rocephin 1000 MG INJ ONE (17:58)
[2022-03-22 18:19] VITALS: BP 119/67; PULSE 87
== END 2022-03-22 18:26 | disposition home or self-care (01) ==
LOC: ED 17:36
DX: S80.862A Insect bite (nonvenomous), left lower leg, initial encounter (principal); Z72.0 Tobacco use
CPT/HCPCS: 96372; 99283; J0696

== ENCOUNTER 2023-02-14 19:10 | Emergency (ER) | payer BC ==
--- NOTE | 2023-02-14 19:26 | ERPHSYRPT ---
- History of Present Illness Time Seen by Provider: 02/14/23 19:25 Historian: patient Exam Limitations: no limitations Patient Subjective Stated Complaint: pt states I began to have this chest pain last night. I thought it was heart burn but it never went away. Triage Nursing Assessment: pt ambulated into the er; pt is axo x4; pt is restless and anxious; c/o chest pain; c/o left chest pain and left arm pain; clear apical heart tone; clear lung sounds in all lobes; no respiratory distress present; vitals wnl; skin PDW Physician History: This is a 22-year-old white female patient who does not have a cardiac history herself but there is a family history of heart disease. There is no history of bleeding or clotting disorders. The patient states that she started having some burning left-sided chest pain that began a few hours after her eating supper last evening. She is never had any like this before. The pain has persisted and got more intense. It is in the left chest and radiates into the left neck and left clavicle as well as the left arm. She is not short of breath. She has no abdominal pain. Patient has had no prior abdominal surgery. Patient has no known drug allergies and she takes no prescription medications chronically. Timing/Duration: yesterday Activities at Onset: none Quality: sharpness Location: other (Left chest) Chest Pain Radiation: neck (Left), arm (Left clavicle left neck) Severity of Pain-Max: moderate Severity of Pain-Current: moderate Modifying Factors: Improves With: antacids (Did not change with taking Tums last evening) Associated Symptoms: heartburn, other (Hurts with palpation) Prior Chest Pain/Cardiac Workup: no prior chest pain, no prior cardiac workup Nitro Today/Relief: no nitro taken today Aspirin Treatment Today: no aspirin today Allergies/Adverse Reactions: No Known Drug Allergies Allergy (Verified 02/14/23 19:12) Hx Tetanus, Diphtheria Vaccination/Date Given: Yes Hx Influenza Vaccination/Date Given: Yes Hx Pneumococcal Vaccination/Date Given: No Travel Risk - International Travel Have you traveled outside of the country in past 3 weeks: No - Coronavirus Screening Are you exhibiting any of the following symptoms?: No Close contact with a COVID-19 positive Pt in past 14-21 Days: No - Vaccine Status Have you recieved a Covid-19 vaccination: Yes [employer]: [employer] - Vaccination Dates Date of 2cond Vaccination (if applicable): 2020 - Review of Systems Constitutional: No Symptoms Eyes: No Symptoms Ears, Nose, & Throat: No Symptoms Respiratory: No Symptoms Cardiac: Chest Pain (Left chest) Abdominal/Gastrointestinal: No Symptoms Genitourinary Symptoms: No Symptoms Musculoskeletal: No Symptoms Skin: No Symptoms Neurological: No Symptoms Psychological: No Symptoms Endocrine: No Symptoms Hematologic/Lymphatic: No Symptoms Immunological/Allergic: No Symptoms All Other Systems: Reviewed and Negative - Past Medical History Pertinent Past Medical History: Yes Neurological History: Migraines ENT History: No Pertinent History Cardiac History: No Pertinent History Respiratory History: No Pertinent History Endocrine Medical History: No Pertinent History Musculoskeletal History: No Pertinent History GI Medical History: No Pertinent History History: No Pertinent History Psycho-Social History: No Pertinent History Female Reproductive Disorders: No Pertinent History Other Medical History: nystigmus - Past Surgical History Past Surgical History: Yes Other Surgical History: CYST REMOVED - Social History Smoking Status: Current every day smoker How long have you smoked: 1 year vap Exposure to second hand smoke: Yes Drug Use: none Patient Lives Alone: No - Female History Hx Now: No - Nursing Vital Signs Nursing Vital Signs: Initial Vital Signs Pulse Rate 114 H 02/14/23 19:11 Respiratory Rate 18 02/14/23 19:11 Blood Pressure 107/83 02/14/23 19:11 O2 Sat by Pulse Oximetry 95 02/14/23 19:11 Pain Scale Pain Intensity 6 - Physical Exam General Appearance: mild distress, alert, anxiety Eye Exam: PERRL/EOMI, eyes nml inspection Ears, Nose, Throat Exam: normal ENT inspection, moist mucous membranes Neck Exam: normal inspection, non-tender, supple, full range of motion Respiratory Exam: normal breath sounds, chest tenderness, lungs clear (Left chest), airway intact, No respiratory distress Cardiovascular Exam: tachycardia Gastrointestinal/Abdomen Exam: soft, normal bowel sounds, tenderness Pelvic Exam: not done Rectal Exam: not done Back Exam: normal inspection, normal range of motion, No CVA tenderness, No vertebral tenderness Extremity Exam: normal inspection, normal range of motion, pelvis stable Neurologic Exam: alert, oriented x 3, cooperative, roll out manager II-XII nml as tested, normal mood/affect, nml cerebellar function, nml station & gait, sensation nml Skin Exam: normal color, warm, dry Lymphatic Exam: No adenopathy SpO2 Interpretation: normal SpO2: 100 O2 Delivery: Room Air - Course Nursing assessment & vital signs reviewed: Yes Ordered Tests: Active Orders 24 hr Category Date Time Status IV Insertion STAT Care 02/14/23 19:37 Active CHEST 1 VIEW (PORTABLE) Stat Exams 02/14/23 20:31 Taken AMYLASE Stat Lab 02/14/23 19:40 Completed CBC W DIFF Stat Lab 02/14/23 19:40 Completed CMP Stat Lab 02/14/23 19:40 Completed D-DIMER QUANTITATIVE Stat Lab 02/14/23 19:40 Completed HCG QUALITATIVE, SERUM Stat Lab 02/14/23 19:40 Completed LIPASE Stat Lab 02/14/23 19:40 Completed TROPONIN Q4H Lab 02/14/23 19:40 Completed TROPONIN Q4H Lab 02/14/23 23:45 Ordered TROPONIN Q4H Lab 02/15/23 03:45 Ordered Medication Summary Discontinued Medications Generic Name Dose Route Start Last Admin Trade Name Freq PRN Reason Stop Dose Admin Al Hydrox/Mg Hydrox/Simethicone Confirm 02/14/23 20:31 Mag Hydrox/Al Hydrox/Simeth 30 Ml Udcup Administered 02/14/23 20:32 Dose 30 ml .ROUTE .STK-MED ONE Aspirin 324 mg 02/14/23 19:37 02/14/23 20:05 Aspirin 81 Mg Tab.Chew PO 02/14/23 19:38 324 mg STAT ONE Administration Aspirin Confirm 02/14/23 20:02 Aspirin 81 Mg Tab.Chew Administered 02/14/23 20:03 Dose 324 mg .ROUTE .STK-MED ONE Lidocaine HCl Confirm 02/14/23 20:30 Lidocaine Hcl 2% Viscous 15 Ml Udcup Administered 02/14/23 20:31 Dose 15 ml .ROUTE .STK-MED ONE Magnesium Hydroxide 45 ml 02/14/23 20:23 02/14/23 20:33 Mag Hydrx/Alum Hyd/Simeth/Lido 45 Ml Bottle PO 02/14/23 20:24 45 ml STAT ONE Administration Morphine Sulfate 2 mg 02/14/23 19:37 02/14/23 20:13 Morphine Sulfate 2 Mg/Ml Inj IV 02/14/23 19:38 2 mg STAT ONE Administration Morphine Sulfate Confirm 02/14/23 20:02 Morphine Sulfate 2 Mg/Ml Inj Administered 02/14/23 20:03 Dose 2 mg .ROUTE .STK-MED ONE Ondansetron HCl 4 mg 02/14/23 19:37 02/14/23 20:06 Ondansetron Hcl 4 Mg/2 Ml Vial IV 02/14/23 19:38 4 mg STAT ONE Administration Ondansetron HCl Confirm 02/14/23 20:02 Ondansetron Hcl 4 Mg/2 Ml Vial Administered 02/14/23 20:03 Dose 4 mg .ROUTE .STK-MED ONE Pantoprazole Sodium 40 mg 02/14/23 19:37 02/14/23 20:09 Pantoprazole 40 Mg Vial IV 02/14/23 19:38 40 mg STAT ONE Administration Pantoprazole Sodium Confirm 02/14/23 20:02 Pantoprazole 40 Mg Vial Administered 02/14/23 20:03 Dose 40 mg IV .STK-MED ONE Lab/Rad Data: Laboratory Result Diagrams 02/14/23 19:40 02/14/23 19:40 Laboratory Results 02/14/23 02/14/23 02/14/23 Range/Units 19:40 19:40 19:40 WBC (4.0-10.5) x10^3/uL RBC (4.1-5.4) x10^6/uL Hgb (12.0-16.0) g/dL Hct (35-47) % MCV (78-100) fL MCH (26-32) pg MCHC (32-36) g/dL RDW (11.5-14.0) % Plt Count (150-450) x10^3/uL MPV (7.5-11.0) fL Gran % (36.0-66.0) % Immature Gran % (Auto) (0.00-0.4) % Nucleat RBC Rel Count (0.00-0.1) % Eos # (Auto) (0-0.5) x10^3/uL Immature Gran # (Auto) (0.00-0.03) x10^3u/L Absolute Lymphs (auto) (1.0-4.6) x10^3/uL Absolute Monos (auto) (0.0-1.3) x10^3/uL Absolute Nucleated RBC (0.00-0.01) x10^3u/L Lymphocytes % (24.0-44.0) % Monocytes % (0.0-12.0) % Eosinophils % (0.00-5.0) % Basophils % (0.0-0.4) % Absolute Granulocytes (1.4-6.9) x10^3/uL Basophils # (0-0.4) x10^3/uL D-Dimer < 0.19 (0.0-0.50) mg/L Sodium (137-145) mmol/L Potassium (3.5-5.1) mmol/L Chloride (98-107) mmol/L Carbon Dioxide (22-30) mmol/L Anion Gap (5-15) MEQ/L BUN (7-17) mg/dL Creatinine (0.52-1.04) mg/dL Estimated GFR ML/MIN Glucose (74-106) mg/dL Calcium (8.4-10.2) mg/dL Total Bilirubin (0.2-1.3) mg/dL AST (14-36) U/L ALT (0-35) U/L Alkaline Phosphatase (38-126) U/L Troponin I < 0.012 (0.000-0.034) ng/mL Serum Total Protein (6.3-8.2) g/dL Albumin (3.5-5.0) g/dL Amylase (30-110) U/L Lipase (23-300) U/L Serum HCG, Qual NEGATIVE (NEGATIVE) 02/14/23 02/14/23 Range/Units 19:40 19:40 WBC 14.3 H (4.0-10.5) x10^3/uL RBC 4.28 (4.1-5.4) x10^6/uL Hgb 13.2 (12.0-16.0) g/dL Hct 39.5 (35-47) % MCV 92.3 (78-100) fL MCH 30.8 (26-32) pg MCHC 33.4 (32-36) g/dL RDW 12.3 (11.5-14.0) % Plt Count 254 (150-450) x10^3/uL MPV 10.8 (7.5-11.0) fL Gran % 63.8 (36.0-66.0) % Immature Gran % (Auto) 0.3 (0.00-0.4) % Nucleat RBC Rel Count 0.0 (0.00-0.1) % Eos # (Auto) 0.06 (0-0.5) x10^3/uL Immature Gran # (Auto) 0.05 H (0.00-0.03) x10^3u/L Absolute Lymphs (auto) 4.46 (1.0-4.6) x10^3/uL Absolute Monos (auto) 0.57 (0.0-1.3) x10^3/uL Absolute Nucleated RBC 0.00 (0.00-0.01) x10^3u/L Lymphocytes % 31.1 (24.0-44.0) % Monocytes % 4.0 (0.0-12.0) % Eosinophils % 0.4 (0.00-5.0) % Basophils % 0.4 (0.0-0.4) % Absolute Granulocytes 9.13 H (1.4-6.9) x10^3/uL Basophils # 0.06 (0-0.4) x10^3/uL D-Dimer (0.0-0.50) mg/L Sodium 139 (137-145) mmol/L Potassium 3.4 L (3.5-5.1) mmol/L Chloride 102 (98-107) mmol/L Carbon Dioxide 24 (22-30) mmol/L Anion Gap 15.5 H (5-15) MEQ/L BUN 12 (7-17) mg/dL Creatinine 0.69 (0.52-1.04) mg/dL Estimated GFR > 60.0 ML/MIN Glucose 118 H (74-106) mg/dL Calcium 9.5 (8.4-10.2) mg/dL Total Bilirubin 0.60 (0.2-1.3) mg/dL AST 23 (14-36) U/L ALT 14 (0-35) U/L Alkaline Phosphatase 58 (38-126) U/L Troponin I (0.000-0.034) ng/mL Serum Total Protein 8.0 (6.3-8.2) g/dL Albumin 4.7 (3.5-5.0) g/dL Amylase 50 (30-110) U/L Lipase 35 (23-300) U/L Serum HCG, Qual (NEGATIVE) - Progress Progress: improved Air Movement: good Progress Note: 02/14/23 20:37 Chest x-ray was interpreted by me. ? Left perihilar infiltrate Blood Culture(s) Obtained: No Antibiotics given: Yes Counseled pt/family regarding: lab results, diagnosis, need for follow-up, rad results Medical Desision Making - Independent Historian Additional History obtained from: Spouse, Mother - Discussion of managment Reviewed:: Test results Agreed on:: Treatment plan, need for follow-up - Diagnostic Testing Diagnostic test were ordered, analyzed, and reviewed by me: Yes Radiological Interpretation: Interpreted by me - Risk of complications The pt has a mod risk of morbidity or mortality based on: Need for prescription drug management - Departure Departure Disposition: Home Clinical Impression: Left pulmonary infiltrate on CXR, Leukocytosis Condition: Stable Critical Care Time: No Referrals: NAOMI BOYD DO [Primary Care Provider] - Follow up/PCP as directed Additional Instructions: Drink plenty of fluids. Take your antibiotics as prescribed. Follow-up with your primary care provider for further evaluation and management. Prescriptions: Azithromycin 250 mg [Zithromax 250 MG TABLET] 250 mg PO ZPACK #6 tablet
[2023-02-14] MEDS ORDERED: BABY ASPIRIN 81 MG CHEW PO ONE (19:37)
[2023-02-14] MEDS ORDERED: PROTONIX 40 MG IV IV ONE ×2 (19:37→20:02)
[2023-02-14] MEDS ORDERED: MORPHINE SULFATE 2 MG INJ IV ONE (19:37)
[2023-02-14] MEDS ORDERED: Zofran 4 MG/2 ML VIAL IV ONE (19:37)
[2023-02-14 20:01] LABS: ALBUMIN 4.7 g/dL (3.5-5.0); ALKALINE PHOSPHATASE 58 U/L (38-126); AMYLASE 50 U/L (30-110); ANION GAP 15.5 MEQ/L (5-15); BLOOD UREA NITROGEN 12 mg/dL (7-17); CHLORIDE 102 mmol/L (98-107); Calcium 9.5 mg/dL (8.4-10.2); Carbon Dioxide 24 mmol/L (22-30); Creatinine 1 0.69 mg/dL (0.52-1.04); EST GLOMERULAR FILTRATION RATE > 60.0 ML/MIN; Glucose 118 mg/dL (74-106); LIPASE 35 U/L (23-300); Potassium 3.4 mmol/L (3.5-5.1); SGOT/AST 23 U/L (14-36); SGPT/ALT 14 U/L (0-35); SODIUM 139 mmol/L (137-145)
[2023-02-14] MEDS ORDERED: BABY ASPIRIN 81 MG CHEW ONE (20:02)
[2023-02-14] MEDS ORDERED: Zofran 4 MG/2 ML VIAL ONE (20:02)
[2023-02-14] MEDS ORDERED: MORPHINE SULFATE 2 MG INJ ONE (20:02)
[2023-02-14 20:03] LABS: Absolute Neutrophil Ct (ANC) 9.13 x10^3/uL (1.4-6.9); BASOPHIL % 0.4 % (0.0-0.4); Basophil (Absolute #) 0.06 x10^3/uL (0-0.4); Eosinophil % 0.4 % (0.00-5.0); Eosinophil (Absolute #) 0.06 x10^3/uL (0-0.5); Hematocrit 39.5 % (35-47); Hemoglobin 13.2 g/dL (12.0-16.0); IMMATURE GRAN # 0.05 x10^3u/L (0.00-0.03); IMMATURE GRAN % 0.3 % (0.00-0.4); Lymphocyte (Absolute #) 4.46 x10^3/uL (1.0-4.6); Lymphocytes % 31.1 % (24.0-44.0); Mean Cell Volume 92.3 fL (78-100); Mean Corpuscular Hemoglobin 30.8 pg (26-32); Mean Corpuscular Hgb Concent. 33.4 g/dL (32-36); Mean Platelet Volume 10.8 fL (7.5-11.0); Monocyte (Absolute #) 0.57 x10^3/uL (0.0-1.3); Neutrophil % 63.8 % (36.0-66.0); Platelet Count 254 x10^3/uL (150-450); Red Blood Count 4.28 x10^6/uL (4.1-5.4); Red Cell Distribution Width 12.3 % (11.5-14.0); White Blood Count 14.3 x10^3/uL (4.0-10.5)
[2023-02-14 20:23] LABS: HCG SERUM TEST NEGATIVE (NEGATIVE)
[2023-02-14] MEDS ORDERED: GI COCKTAIL 45 ML (Maalox/Lidocaine) PO ONE (20:23)
[2023-02-14] MEDS ORDERED: XYLOCAINE VISCOUS 2% 15 ML CUP ONE (20:30)
[2023-02-14] MEDS ORDERED: MAALOX ES 30 ML UNIT DOSE ONE (20:31)
[2023-02-14] MEDS ORDERED: ROCEPHIN 1 Gm-D5w 50 ml Bag** 1 G/50 ML IVPB IV STA (20:40)
[2023-02-14] MEDS ORDERED: ROCEPHIN 1 Gm-D5w 50 ml Bag** 1 G/50 ML IVPB IV ONE (20:45)
[2023-02-14] MEDS ORDERED: HYDROCODONE-ACETAMIN 2.5-108/5 ML SOLUTION PO STA ×2 (20:51→20:52)
[2023-02-14] MEDS ORDERED: HYDROCODONE-ACETAMIN 2.5-108/5 ML SOLUTION ONE ×2 (20:58→21:03)
[2023-02-14 21:17] VITALS: BP 116/71; PULSE 79; O2SAT 98
--- NOTE | 2023-02-15 08:43 | XRAY ---
Indication: Left chest pain and short of breath. Comparison: January 14, 2014 Portable chest again demonstrates normal heart, lungs, and bony thorax.
== END 2023-02-14 21:23 | disposition home or self-care (01) ==
LOC: ED 19:10
DX: R91.8 Other nonspecific abnormal finding of lung field (principal); D72.829 Elevated white blood cell count, unspecified; R07.9 Chest pain, unspecified; Z79.891 Long term (current) use of opiate analgesic; Z72.0 Tobacco use
CPT/HCPCS: 36000; 36415; 71045; 80053; 82150; 83690; 84484; 84703; 85025; 85379; 96365; 96374; 96375; 99284; J0696; J2270; J2405; A9270-GY

== ENCOUNTER 2023-03-01 09:22 | Emergency (ER) | payer BC ==
[2023-03-01] MEDS ORDERED: MORPHINE SULFATE 4 MG INJ IV ONE ×2 (09:49→13:16)
[2023-03-01] MEDS ORDERED: Sodium Chloride 0.9% 1000 ML 1,000 ML IV STA (09:49)
[2023-03-01] MEDS ORDERED: Zofran 4 MG/2 ML VIAL IV ONE (09:49)
--- NOTE | 2023-03-01 09:59 | ERPHSYRPT ---
- History of Present Illness Time Seen by Provider: 03/01/23 09:49 Historian: patient, family Exam Limitations: no limitations Patient Subjective Stated Complaint: pt here for lower left abd pain since last night getting worse, with vomiting, Triage Nursing Assessment: pt alert, resp easy, moaing out and holding abd, no edema noted, moves all ext well Physician History: 22-year-old female presented in the ER with chief complaint of left lower quadrant/pelvic pain with radiation to left flank moderate to severe sharp since midnight, associated with multiple episodes of nonprojectile, nonbilious vomiting without hematemesis. Does have history of ovarian cyst but no history of kidney stones. Denies any UTI symptoms otherwise. Timing/Duration: hour(s) (10), constant, sudden, worse Activities at Onset: rest Quality: sharpness Abdominal Pain Onset Location: LLQ Pain Radiation: flank Severity of Pain-Max: severe Severity of Pain-Current: severe Modifying Factors: Worsens With: movement, palpation, vomiting Associated Symptoms: nausea, vomiting Previous symptoms: no prior history Allergies/Adverse Reactions: No Known Drug Allergies Allergy (Verified 03/01/23 09:32) Hx Tetanus, Diphtheria Vaccination/Date Given: Yes Hx Influenza Vaccination/Date Given: Yes Hx Pneumococcal Vaccination/Date Given: No Travel Risk - International Travel Have you traveled outside of the country in past 3 weeks: No - Coronavirus Screening Are you exhibiting any of the following symptoms?: No Close contact with a COVID-19 positive Pt in past 14-21 Days: No - Vaccine Status Have you recieved a Covid-19 vaccination: Yes [employer]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[employer] - Vaccination Dates Date of 2cond Vaccination (if applicable): 2020 - Review of Systems Constitutional: No Symptoms Eyes: No Symptoms Ears, Nose, & Throat: No Symptoms Respiratory: No Symptoms Cardiac: No Symptoms Abdominal/Gastrointestinal: Abdominal Pain, Nausea, Vomiting Genitourinary Symptoms: No Symptoms Musculoskeletal: No Symptoms Skin: No Symptoms Neurological: No Symptoms Endocrine: No Symptoms Hematologic/Lymphatic: No Symptoms Immunological/Allergic: No Symptoms - Past Medical History Pertinent Past Medical History: Yes Neurological History: Migraines ENT History: No Pertinent History Cardiac History: No Pertinent History Respiratory History: No Pertinent History Endocrine Medical History: No Pertinent History Musculoskeletal History: No Pertinent History GI Medical History: No Pertinent History History: No Pertinent History Psycho-Social History: No Pertinent History Female Reproductive Disorders: No Pertinent History Other Medical History: nystigmus - Past Surgical History Past Surgical History: Yes Other Surgical History: CYST REMOVED - Social History Smoking Status: Never smoker How long have you smoked: 1 year vap Exposure to second hand smoke: Yes Drug Use: none Patient Lives Alone: No - Female History Hx Last Menstrual Period: now Hx Now: No (unsure) - Nursing Vital Signs Nursing Vital Signs: Initial Vital Signs Temperature 97.4 F 03/01/23 09:22 Pulse Rate 84 03/01/23 09:22 Respiratory Rate 18 03/01/23 09:22 Blood Pressure 137/70 03/01/23 09:22 O2 Sat by Pulse Oximetry 98 03/01/23 09:22 Pain Scale Pain Intensity 4 - Physical Exam General Appearance: no apparent distress, alert Eye Exam: PERRL/EOMI Ears, Nose, Throat Exam: normal ENT inspection Neck Exam: normal inspection, supple, full range of motion Respiratory Exam: normal breath sounds, lungs clear Cardiovascular Exam: regular rate/rhythm, normal heart sounds Gastrointestinal/Abdomen Exam: soft, normal bowel sounds, tenderness (LLQ), guarding Back Exam: normal inspection, normal range of motion, CVA tenderness (Left) Extremity Exam: normal inspection, normal range of motion Neurologic Exam: alert, oriented x 3, cooperative Skin Exam: normal color SpO2 Interpretation: normal SpO2: 98 O2 Delivery: Room Air Ordered Tests: Active Orders 24 hr Category Date Time Status IV Insertion STAT Care 03/01/23 09:49 Active NPO (ED) STAT Care 03/01/23 09:49 Active ABDOMEN AND PELVIS W/0 CONTRAS [CT] Stat Exams 03/01/23 10:35 Completed PELVIS TRANS VAGINAL [US] Stat Exams 03/01/23 09:49 Completed CBC W DIFF Stat Lab 03/01/23 08:40 Completed CMP Stat Lab 03/01/23 08:40 Completed CULTURE,URINE Stat Lab 03/01/23 10:58 Received HCG QUALITATIVE, SERUM Stat Lab 03/01/23 08:40 Completed LIPASE Stat Lab 03/01/23 08:40 Completed Lactic Acid Stat Lab 03/01/23 09:49 Completed Lactic Acid Stat Lab 03/01/23 12:09 Completed UA W/RFX UR CULTURE Stat Lab 03/01/23 10:58 Completed Medication Summary Discontinued Medications Generic Name Dose Route Start Last Admin Trade Name Freq PRN Reason Stop Dose Admin Diphenhydramine HCl 25 mg 03/01/23 15:14 03/01/23 15:24 Diphenhydramine Hcl 50 Mg/Ml Vial IV 03/01/23 15:15 25 mg STAT ONE Administration Diphenhydramine HCl Confirm 03/01/23 15:23 Diphenhydramine Hcl 50 Mg/Ml Vial Administered 03/01/23 15:24 Dose 50 mg .ROUTE .STK-MED ONE Sodium Chloride 1,000 mls @ 999 mls/hr 03/01/23 09:49 03/01/23 11:24 Sodium Chloride 0.9% 1000 Ml IV 03/01/23 10:49 Infused .Q1H1M STA Infusion Sodium Chloride Confirm 03/01/23 10:14 Sodium Chloride 0.9% 1000 Ml Administered 03/01/23 10:15 Dose 1,000 mls @ ud .ROUTE .STK-MED ONE Ketorolac Tromethamine 30 mg 03/01/23 12:33 03/01/23 12:35 Ketorolac Tromethamine 30 Mg/Ml Inj IV 03/01/23 12:34 30 mg STAT ONE Administration Ketorolac Tromethamine Confirm 03/01/23 12:35 Ketorolac Tromethamine 30 Mg/Ml Inj Administered 03/01/23 12:36 Dose 30 mg .ROUTE .STK-MED ONE Metoclopramide HCl 10 mg 03/01/23 15:14 03/01/23 15:24 Metoclopramide Hcl 10 Mg/2 Ml Vial IV 03/01/23 15:15 10 mg STAT ONE Administration Metoclopramide HCl Confirm 03/01/23 15:23 Metoclopramide Hcl 10 Mg/2 Ml Vial Administered 03/01/23 15:24 Dose 10 mg .ROUTE .STK-MED ONE Morphine Sulfate 4 mg 03/01/23 09:49 03/01/23 10:21 Morphine Sulfate 4 Mg/Ml Injection IV 03/01/23 09:50 4 mg STAT ONE Administration Morphine Sulfate Confirm 03/01/23 10:14 Morphine Sulfate 4 Mg/Ml Injection Administered 03/01/23 10:15 Dose 4 mg .ROUTE .STK-MED ONE Morphine Sulfate 4 mg 03/01/23 13:16 03/01/23 14:29 Morphine Sulfate 4 Mg/Ml Injection IV 03/01/23 13:17 4 mg STAT ONE Administration Morphine Sulfate Confirm 03/01/23 14:20 Morphine Sulfate 4 Mg/Ml Injection Administered 03/01/23 14:21 Dose 4 mg .ROUTE .STK-MED ONE Ondansetron HCl 4 mg 03/01/23 09:49 03/01/23 10:21 Ondansetron Hcl 4 Mg/2 Ml Vial IV 03/01/23 09:50 4 mg STAT ONE Administration Ondansetron HCl Confirm 03/01/23 10:14 Ondansetron Hcl 4 Mg/2 Ml Vial Administered 03/01/23 10:15 Dose 4 mg .ROUTE .STK-MED ONE Lab/Rad Data: Laboratory Result Diagrams 03/01/23 08:40 03/01/23 08:40 Laboratory Results 03/01/23 03/01/23 03/01/23 Range/Units 12:09 10:58 09:49 WBC (4.0-10.5) x10^3/uL RBC (4.1-5.4) x10^6/uL Hgb (12.0-16.0) g/dL Hct (35-47) % MCV (78-100) fL MCH (26-32) pg MCHC (32-36) g/dL RDW (11.5-14.0) % Plt Count (150-450) x10^3/uL MPV (7.5-11.0) fL Gran % (36.0-66.0) % Immature Gran % (Auto) (0.00-0.4) % Nucleat RBC Rel Count (0.00-0.1) % Eos # (Auto) (0-0.5) x10^3/uL Immature Gran # (Auto) (0.00-0.03) x10^3u/L Absolute Lymphs (auto) (1.0-4.6) x10^3/uL Absolute Monos (auto) (0.0-1.3) x10^3/uL Absolute Nucleated RBC (0.00-0.01) x10^3u/L Lymphocytes % (24.0-44.0) % Monocytes % (0.0-12.0) % Eosinophils % (0.00-5.0) % Basophils % (0.0-0.4) % Absolute Granulocytes (1.4-6.9) x10^3/uL Basophils # (0-0.4) x10^3/uL Sodium (137-145) mmol/L Potassium (3.5-5.1) mmol/L Chloride (98-107) mmol/L Carbon Dioxide (22-30) mmol/L Anion Gap (5-15) MEQ/L BUN (7-17) mg/dL Creatinine (0.52-1.04) mg/dL Estimated GFR ML/MIN Glucose (74-106) mg/dL Lactic Acid 0.7 2.4 H (0.4-2.0) Calcium (8.4-10.2) mg/dL Total Bilirubin (0.2-1.3) mg/dL AST (14-36) U/L ALT (0-35) U/L Alkaline Phosphatase (38-126) U/L Serum Total Protein (6.3-8.2) g/dL Albumin (3.5-5.0) g/dL Lipase (23-300) U/L Serum HCG, Qual (NEGATIVE) Urine Color Dorr A (Yellow) Urine Appearance Cloudy A (Clear) Urine pH 8.5 A (4.6-8.0) Ur Specific Gibbon 1.010 (1.005-1.030) Urine Protein 30 (Negative) Urine Glucose (UA) Negative (Negative) mg/dL Urine Ketones Negative (Negative) Urine Blood Large A (Negative) Urine Nitrite Negative (Negative) Urine Bilirubin Negative (Negative) Urine Urobilinogen 1.0 A (0.2) mg/dL Ur Leukocyte Esterase Small A (Negative) U Hyaline Cast (Auto) NONE SEEN (0-2) /LPF Urine Microscopic RBC >100 A (0-5) /HPF Urine Microscopic WBC 11-20 A (0-5) /HPF Ur Epithelial Cells Moderate A (None Seen) /HPF Urine Bacteria Few A (None Seen) /HPF Urine Culture Reflexed YES (NO) 03/01/23 03/01/23 03/01/23 Range/Units 08:40 08:40 08:40 WBC 9.7 (4.0-10.5) x10^3/uL RBC 4.26 (4.1-5.4) x10^6/uL Hgb 13.1 (12.0-16.0) g/dL Hct 39.3 (35-47) % MCV 92.3 (78-100) fL MCH 30.8 (26-32) pg MCHC 33.3 (32-36) g/dL RDW 12.2 (11.5-14.0) % Plt Count 246 (150-450) x10^3/uL MPV 10.5 (7.5-11.0) fL Gran % 70.1 H (36.0-66.0) % Immature Gran % (Auto) 0.3 (0.00-0.4) % Nucleat RBC Rel Count 0.0 (0.00-0.1) % Eos # (Auto) 0.06 (0-0.5) x10^3/uL Immature Gran # (Auto) 0.03 (0.00-0.03) x10^3u/L Absolute Lymphs (auto) 2.24 (1.0-4.6) x10^3/uL Absolute Monos (auto) 0.53 (0.0-1.3) x10^3/uL Absolute Nucleated RBC 0.00 (0.00-0.01) x10^3u/L Lymphocytes % 23.2 L (24.0-44.0) % Monocytes % 5.5 (0.0-12.0) % Eosinophils % 0.6 (0.00-5.0) % Basophils % 0.3 (0.0-0.4) % Absolute Granulocytes 6.78 (1.4-6.9) x10^3/uL Basophils # 0.03 (0-0.4) x10^3/uL Sodium 140 (137-145) mmol/L Potassium 4.0 (3.5-5.1) mmol/L Chloride 106 (98-107) mmol/L Carbon Dioxide 21 L (22-30) mmol/L Anion Gap 16.9 H (5-15) MEQ/L BUN 14 (7-17) mg/dL Creatinine 0.60 (0.52-1.04) mg/dL Estimated GFR > 60.0 ML/MIN Glucose 99 (74-106) mg/dL Lactic Acid (0.4-2.0) Calcium 9.0 (8.4-10.2) mg/dL Total Bilirubin 0.80 (0.2-1.3) mg/dL AST 22 (14-36) U/L ALT 17 (0-35) U/L Alkaline Phosphatase 47 (38-126) U/L Serum Total Protein 8.0 (6.3-8.2) g/dL Albumin 4.5 (3.5-5.0) g/dL Lipase 31 (23-300) U/L Serum HCG, Qual NEGATIVE (NEGATIVE) Urine Color (Yellow) Urine Appearance (Clear) Urine pH (4.6-8.0) Ur Specific Gibbon (1.005-1.030) Urine Protein (Negative) Urine Glucose (UA) (Negative) mg/dL Urine Ketones (Negative) Urine Blood (Negative) Urine Nitrite (Negative) Urine Bilirubin (Negative) Urine Urobilinogen (0.2) mg/dL Ur Leukocyte Esterase (Negative) U Hyaline Cast (Auto) (0-2) /LPF Urine Microscopic RBC (0-5) /HPF Urine Microscopic WBC (0-5) /HPF Ur Epithelial Cells (None Seen) /HPF Urine Bacteria (None Seen) /HPF Urine Culture Reflexed (NO) - Progress Progress: improved, re-examined Progress Note: 03/01/23 16:25 22-year-old female is evaluated for left lower quadrant/pelvic area pain with some radiation to the flank since midnight with associated nausea and vomiting. She is given symptomatic treatment multiple times and pain is finally better. She has a normal white count, unremarkable chemistries. She is currently on her cycle and has no definitive UTI. I have obtained ultrasound which ruled out torsion, and does have some cyst rupture on the right side but patient pain is on the left and no cyst or acute pathology on the left ovary. Obtained CT abdomen pelvis without contrast which is negative for stone, obstruction but does have moderate stool load. Patient is feeling better on reevaluation. I do not know the exact cause of her pain but have ruled out all the major emergencies. She is not in any distress, nontoxic appearance. She is being discharged with outpatient follow-up. She is advised to return in case of worsening pain, intractable vomiting etc. Counseled pt/family regarding: lab results, diagnosis, need for follow-up, rad results Medical Desision Making - Discussion of managment Reviewed:: Test results Agreed on:: Treatment plan, need for follow-up - Diagnostic Testing Radiological Interpretation: Reviewed by me - Risk of complications The pt has a mod risk of morbidity or mortality based on: Need for prescription drug management - Departure Departure Disposition: Home Clinical Impression: Left sided abdominal pain of unknown cause, Constipation Referrals: NAOMI BOYD DO [Primary Care Provider] - Follow Up with PCP/3 days Instructions: Severe Abdominal Pain, Adult (DC) Additional Instructions: Take Tylenol/ibuprofen as needed for pain. Keep yourself well-hydrated. Follow-up with primary care for reevaluation early next week. Return to ER for intractable abdominal pain, nausea vomiting etc. Take daily MiraLAX. Prescriptions: Ibuprofen 600 mg PO Q6HPRN PRN 10 Days #20 tablet PRN Reason: Pain
[2023-03-01] MEDS ORDERED: Zofran 4 MG/2 ML VIAL ONE (10:14)
[2023-03-01] MEDS ORDERED: MORPHINE SULFATE 4 MG INJ ONE ×2 (10:14→14:20)
[2023-03-01] MEDS ORDERED: Sodium Chloride 0.9% 1000 ML 1,000 ML ONE (10:14)
[2023-03-01 10:15] LABS: ALBUMIN 4.5 g/dL (3.5-5.0); ALKALINE PHOSPHATASE 47 U/L (38-126); ANION GAP 16.9 MEQ/L (5-15); BLOOD UREA NITROGEN 14 mg/dL (7-17); CHLORIDE 106 mmol/L (98-107); Carbon Dioxide 21 mmol/L (22-30); EST GLOMERULAR FILTRATION RATE > 60.0 ML/MIN; Glucose 99 mg/dL (74-106); LIPASE 31 U/L (23-300); SGOT/AST 22 U/L (14-36); SGPT/ALT 17 U/L (0-35); SODIUM 140 mmol/L (137-145)
[2023-03-01 10:17] LABS: Absolute Neutrophil Ct (ANC) 6.78 x10^3/uL (1.4-6.9); BASOPHIL % 0.3 % (0.0-0.4); Basophil (Absolute #) 0.03 x10^3/uL (0-0.4); Eosinophil % 0.6 % (0.00-5.0); Eosinophil (Absolute #) 0.06 x10^3/uL (0-0.5); Hematocrit 39.3 % (35-47); Hemoglobin 13.1 g/dL (12.0-16.0); IMMATURE GRAN # 0.03 x10^3u/L (0.00-0.03); IMMATURE GRAN % 0.3 % (0.00-0.4); Lymphocyte (Absolute #) 2.24 x10^3/uL (1.0-4.6); Lymphocytes % 23.2 % (24.0-44.0); Mean Cell Volume 92.3 fL (78-100); Mean Corpuscular Hemoglobin 30.8 pg (26-32); Mean Corpuscular Hgb Concent. 33.3 g/dL (32-36); Mean Platelet Volume 10.5 fL (7.5-11.0); Monocyte (Absolute #) 0.53 x10^3/uL (0.0-1.3); Monocytes % 5.5 % (0.0-12.0); Neutrophil % 70.1 % (36.0-66.0); Platelet Count 246 x10^3/uL (150-450); Red Blood Count 4.26 x10^6/uL (4.1-5.4); Red Cell Distribution Width 12.2 % (11.5-14.0); White Blood Count 9.7 x10^3/uL (4.0-10.5)
[2023-03-01 10:18] LABS: HCG SERUM TEST NEGATIVE (NEGATIVE)
--- NOTE | 2023-03-01 10:52 | XRAY ---
Indication: Left pelvic pain. Two-dimensional transvaginal pelvic sonogram performed. Comparison: February 16, 2021 Uterus again retroflexed measuring 5.9 x 2.9 x 4.4 cm. No focal solid/cystic uterine mass. Endometrial stripe measures 7.7 mm. No endometrial cavity mass or fluid collection. Right ovary measures 2.4 x 1.7 x 3.8 cm and the left measures 2.4 x 2.2 x 1.6 cm. Normal perfusion bilaterally. Tiny cul-de-sac fluid presumed physiologic from rupture/leaking cyst. Impression: Again retroflexed uterus with tiny physiologic cul-de-sac fluid. Remaining transvaginal pelvic sonogram continues to be negative.
[2023-03-01 11:23] LABS: Appearance Cloudy (Clear); Bacteria Few /HPF (None Seen); Bilirubin Negative (Negative); Blood Large (Negative); Epithelial Cells Moderate /HPF (None Seen); Glucose, Urine Negative (Negative); Hyaline Casts NONE SEEN /LPF (0-2); Ketones Negative (Negative); Leukocyte Esterase Small (Negative); Nitrite Negative (Negative); Ph 8.5 (4.6-8.0); Protein,Urine Dip 30 (Negative); RBC >100 /HPF (0-5)
[2023-03-01 11:25] LABS: ADD URINE CULTURE? YES (NO)
--- NOTE | 2023-03-01 11:30 | XRAY ---
Indication: Pain. Multiple contiguous axial images obtained through the abdomen and pelvis without contrast. Comparison: February 16, 2021 Lung bases clear. Heart not enlarged. Noncontrasted stomach and bowel loops nonobstructed again with normal appendix. There is now mild/moderate diffuse scattered colonic fecal debris throughout including rectum. No free fluid/air. Remaining liver, gallbladder, pancreas, spleen, adrenal glands, kidneys, ureters, bladder, uterus, and aorta are unremarkable for noncontrast exam. Osseous structures intact. Impression: 1. New mild/moderate diffuse fecal stasis. 2. Remaining CT abdomen/pelvis without contrast exam continues to be negative.
[2023-03-01] MEDS ORDERED: TORAdol 30 mg Injection IV ONE (12:33)
[2023-03-01] MEDS ORDERED: TORAdol 30 mg Injection ONE (12:35)
[2023-03-01] MEDS ORDERED: BENADRYL 50 MG/ML IV ONE (15:14)
[2023-03-01] MEDS ORDERED: Reglan 10 MG/2 ML IV ONE (15:14)
[2023-03-01] MEDS ORDERED: BENADRYL 50 MG/ML ONE (15:23)
[2023-03-01] MEDS ORDERED: Reglan 10 MG/2 ML ONE (15:23)
[2023-03-01 15:56] VITALS: BP 121/79; PULSE 49
[2023-03-01 16:30] VITALS: O2SAT 98
== END 2023-03-01 16:50 | disposition home or self-care (01) ==
LOC: ED 09:22
DX: R10.32 Left lower quadrant pain (principal); K59.00 Constipation, unspecified; R10.2 Pelvic and perineal pain; R11.2 Nausea with vomiting, unspecified
CPT/HCPCS: 36415; 74176; 76830; 80053; 81001; 83605; 83690; 84703; 85025; 87086; 96374; 96375; 96376; 99284; J1200; J1885; J2270; J2405